=== PATIENT | male | born 1995 | race African-American/Black ===

== ENCOUNTER 2017-10-08 14:12 | Emergency (ER) | payer MEDICAID ==
[~2017-10-08] VITALS: Ht 180.3 cm; Wt 69.0 kg
[2017-10-08 14:26] VITALS: BP 118/57
[2017-10-08] MEDS ORDERED: ALBU2.5V13 IH (14:34)
[2017-10-08] MEDS ORDERED: FLUTICASONE PROPIONATE 50MCG/SPRAY BOTTLE BOTHNSTRLS STA (17:53)
[2017-10-08] MEDS ORDERED: ONDANSETRON HCL 4MG TABLET PO ONE (18:00)
[2017-10-08 18:06] LABS: BASOPHILS % 0.4 % (0.0-2.0); EOSINOPHILS % 0.8 % (0.0-5.0); HEMATOCRIT. 42.8 % (42.0-52.0); HEMOGLOBIN. 14.1 g/dL (14.0-18.0); LYMPHOCYTES % 34.5 % (20.0-50.0); MEAN CORPUSCULAR HEMOGLOBIN 27.6 pg (28.0-32.0); MEAN CORPUSCULAR VOLUME 83.5 fL (80.0-94.0); MONOCYTES % 19.3 % (2.0-8.0); PLATELET 175 x1000/uL (130-400); RED BLOOD CELL COUNT 5.13 mill/uL (4.7-6.1); RED CELL DISTRIBUTION WIDTH 14.3 % (11.6-14.6)
[2017-10-08 18:11] LABS: PROTHROMBIN TIME 10.7 sec (9.4-11.6)
[2017-10-08 18:22] LABS: CHLORIDE 107 mEq/L (98-107); TROPONIN I < 0.02 ng/mL (0.00-0.04)
== END 2017-10-08 20:27 | disposition home or self-care (01) ==
LOC: ER 14:12
DX: B34.9 Viral infection, unspecified (principal); J45.909 Unspecified asthma, uncomplicated; R79.1 Abnormal coagulation profile; F12.10 Cannabis abuse, uncomplicated; F17.200 Nicotine dependence, unspecified, uncomplicated
CPT/HCPCS: 36415; 71045; 80053; 83880; 84484; 85025; 85610; 99285; Q0162

== ENCOUNTER 2023-08-08 02:50 | Emergency (ER) | payer MEDICAID, OTHER ==
[~2023-08-08] VITALS: Ht 175.3 cm; Wt 70.0 kg
[~2023-08-08 02:50] MED LIST: ALBU2.5V13 IH
[2023-08-08 02:52] VITALS: O2SAT 99
[2023-08-08] MEDS ORDERED: IBUPROFEN 600MG TABLET PO ONE (04:15)
[2023-08-08] MEDS ORDERED: GABA300C MT (05:03)
[2023-08-08] MEDS ORDERED: IBUP-2029 MT (05:03)
[2023-08-08 06:10] VITALS: BP 135/79; PULSE 71; RESP 16; TEMP 98.4
== END 2023-08-08 06:15 | disposition home or self-care (01) ==
LOC: ER 03:02
DX: M79.605 Pain in left leg (principal); M79.604 Pain in right leg; J45.909 Unspecified asthma, uncomplicated; F12.10 Cannabis abuse, uncomplicated; Z86.59 Personal history of other mental and behavioral disorders
CPT/HCPCS: 73560; 99283

== ENCOUNTER 2024-08-31 20:59 | Emergency (ER) | payer OTHER ==
[~2024-08-31 20:59] MED LIST changes: +GABA300C MT; +IBUP-2029 MT
[2024-08-31 21:21] VITALS: PULSE 104; O2SAT 96
== END 2024-08-31 22:39 | disposition left against medical advice (07) ==
LOC: ER 20:59
DX: M25.562 Pain in left knee (principal); Z53.21 Procedure and treatment not carried out due to patient leaving prior to being seen by health care provider